=== PATIENT | male | born 1970 | race Hispanic/Latino ===

== ENCOUNTER → 2017-11-26 | Day surgery (SDC) | payer BC ==
[~2017-11-26] MED LIST: BUPIVACAINE 0.5%/EPI 30 ML SDV INJ ONE; CEFAZOLIN SOD 1 GM VIAL ONE; LIDOCAINE 1% W/EPINEPHRINE 20 ML VIAL ONE; LIDOCAINE 2%/ EPINEPHRINE 20ML MDV ONE; LIDOCAINE HCL 2% LOCAL INJ 5 ML SDV VIAL INJ ONE; NEXIUM20 MG PO
[2017-11-26 12:30] VITALS: BP 139/94
--- NOTE | 2018-01-20 12:47 | Operative Report ---
DATE OF PROCEDURE: November 26, 2017 PREOPERATIVE DIAGNOSIS: Displaced left great toe fracture. POSTOPERATIVE DIAGNOSIS: Displaced left great toe fracture. PROCEDURE: Closed reduction and percutaneous pinning, left great toe. INDICATIONS: The patient is an active 47-year-old gentleman who dropped a heavy object on his left foot. He has a markedly displaced fracture of the proximal phalanx of his great toe. The findings and options have been discussed. We plan on closed reduction and percutaneous pin fixation. The risks and benefits have been explained. He states he understands and wishes to proceed. DESCRIPTION OF PROCEDURE: The patient was brought to the operating room. A preoperative time out was performed. A local block of the left great toe was performed. A C-arm image intensifier was used to assist in placement of a 0.62 K-wire from the distal phalanx across the IP joint and into the base of the proximal phalanx. This was done while the proximal phalanx was held in reduction. Consideration was given for placement of additional pins. This was ultimately not felt to be necessary. Intraoperative x-rays confirmed satisfactory reduction and positioning of the pin. The pin was cut short and capped. He was placed into a sterile bandage. He was transported to the recovery room in stable condition. Job#: [id number]
== END | disposition home or self-care (01) ==
LOC: OR 09:48
PROVIDERS: ATTEND Specialist
DX: S92.412A Displaced fracture of proximal phalanx of left great toe, initial encounter for closed fracture (principal); K21.9 Gastro-esophageal reflux disease without esophagitis; W20.8XXA Other cause of strike by thrown, projected or falling object, initial encounter; Z01.810 Encounter for preprocedural cardiovascular examination
CPT/HCPCS: 28496; 76000; 93005; J0690; J2001; C1713